=== PATIENT | male | born 1995 ===

== ENCOUNTER 2016-08-18 15:03 | Emergency (ER) | payer OTHER ==
[2016-08-18 15:33] VITALS: BP 144/69
--- NOTE | 2016-08-18 16:25 | UC ---
General HPI <Josie Escoto - Last Filed: 08/18/16 16:24> - HPI Summary HPI Summary: possible exposure to chlamydia in April; notified by partner today. Using a condom but it broke. One partner since that time; faithful with condom use. No hx of STI's. No dysuria, no frequency, no discharge, no rashes. - History of Current Complaint Hx Obtained From: Patient Current Severity: None <Katiuska Liao - Last Filed: 08/18/16 16:39> - History of Current Complaint Chief Complaint: UCSTDScreening Stated Complaint: STD TESTING Time Seen by Provider: 08/18/16 16:24 - Allergy/Home Medications Allergies/Adverse Reactions: Allergies Allergy/AdvReac Type Severity Reaction Status Date / Time No Known Allergies Allergy Verified 08/18/16 15:33 Home Medications: Home Medications amLODIPine TAB* [Norvasc TAB*] 5 mg PO DAILY 08/18/16 [History Confirmed ] PMH/Surg Hx/FS Hx/Imm Hx Cardiovascular History Of: Reports: Hypertension - Surgical History Surgical History: None - Social History Alcohol Use: Occasionally Substance Use Type: None Smoking Status (MU): Never Smoked Tobacco <Josie Escoto - Last Filed: 08/18/16 16:24> Cardiovascular History Of: Reports: Hypertension - diagnosed age 15 - Family History Known Family History: Positive: Hypertension - FH of severe hypertension on maternal side. - Social History Occupation: Student Lives: Alone <Katiuska Liao - Last Filed: 08/18/16 16:39> Review of Systems Constitutional: Negative Skin: Negative Eyes: Negative ENT: Negative Respiratory: Negative Cardiovascular: Negative Gastrointestinal: Negative Genitourinary: Negative Motor: Negative Neurovascular: Negative Musculoskeletal: Negative Neurological: Negative Psychological: Negative All Other Systems Reviewed And Are Negative: Yes <Katiuska Liao - Last Filed: 08/18/16 16:39> Physical Exam Vital Signs: Initial Vital Signs Temp 96.4 F 08/18/16 15:28 Pulse 90 08/18/16 15:28 Resp 16 08/18/16 15:28 BP 144/69 08/18/16 15:28 Pulse Ox 100 08/18/16 15:28 <Josie Escoto - Last Filed: 08/18/16 16:24> Triage Information Reviewed: Yes Appearance: Well-Appearing, No Pain Distress Vital Signs: Initial Vital Signs Temp 96.4 F 08/18/16 15:28 Pulse 90 08/18/16 15:28 Resp 16 08/18/16 15:28 BP 144/69 08/18/16 15:28 Pulse Ox 100 08/18/16 15:28 Eye Exam: Normal Eyes: Positive: Conjunctiva Clear ENT: Positive: Normal ENT inspection Neck exam: Normal Respiratory: Positive: Lungs clear, Normal breath sounds Cardiovascular: Positive: RRR, No Murmur Psychological Exam: Normal <Katiuska Liao - Last Filed: 08/18/16 16:39> Course/Dx - Course Course Of Treatment: Offered treatment based on exposure, but he declined. Wants to limit STI testing to Chlamydia alone and wait for the result. - Differential Dx - Multi-Symptom Differential Diagnoses: Other - STI Provider Diagnoses: Chlamydia exposure <Katiuska Liao - Last Filed: 08/18/16 16:39> Discharge <Josie Escoto - Last Filed: 08/18/16 16:24> <Katiuska Liao - Last Filed: 08/18/16 16:39> - Discharge Plan Condition: Good Disposition: HOME Patient Education Materials: Chlamydia (ED) Additional Instructions: As discuss, you are awaiting test results rather than treating based on exposure alone. The test will be reported in 2 days. You can access the result via the portal or call in; you will be called if there is a positive test.
== END 2016-08-18 16:54 | disposition home or self-care (01) ==
LOC: UCCORT 15:03
DX: Z20.2 Contact with and (suspected) exposure to infections with a predominantly sexual mode of transmission (principal); Z11.3 Encounter for screening for infections with a predominantly sexual mode of transmission
CPT/HCPCS: 87491; 87591; 99201; G0463